=== PATIENT | male | born 1945 | race American Indian/Alaskan Native ===

== ENCOUNTER 2017-09-19 09:03 | Outpatient (CLI) | payer MEDICARE ==
--- NOTE | 2017-09-19 09:44 | XRay Report ---
CHEST XRAY, 2 VIEWS: History: Abnormal weight loss. Findings: There is mild diffuse interstitial coarsening. The lungs are hyperexpanded but clear. No infiltrate, pleural fluid or pneumothorax is detected. The cardiac silhouette and pulmonary vasculature are within normal limits for technique. The bony thorax is unremarkable. IMPRESSION: Changes consistent with COPD. No acute cardiopulmonary process.
== END 2017-09-19 09:04 | disposition home or self-care (01) ==
LOC: XRAY 09:03
PROVIDERS: ATTEND Family Medicine
DX: R63.4 Abnormal weight loss (principal)
CPT/HCPCS: 71046

== ENCOUNTER 2019-12-02 07:35 | Outpatient (CLI) | payer MEDICARE ==
[2019-12-02 08:23] LABS: Blood Urea Nitrogen 9 mg/dL (9-20)
--- NOTE | 2019-12-02 10:47 | Cat Scan Report ---
CT ABDOMEN AND PELVIS WITH CONTRAST (CT ENTEROGRAPHY) INDICATION / CLINICAL INFORMATION: Follow-up of thickening of the distal ileum on prior CT. TECHNIQUE: Axial CT images were obtained through the abdomen and pelvis after 100 cc Omnipaque 300 IV contrast a nd oral contrast. All CT scans at this location are performed using CT dose reduction for NAHOMY willard of automated exposure control. COMPARISON: Small bowel series from 09/30/2019. FINDINGS: LOWER CHEST: The lung bases are clear. Heart size is normal without a pericardial effusion. There is dense calcification throughout the coronary arteries with moderate thoracic aortic atherosclerosis. N o other significant abnormality. LIVER: No significant abnormality. GALLBLADDER: Contracted without a distinct abnormality. BILE DUCTS: No significant abnormality. PANCREAS: No significant abnormality. SPLEEN: No significant abnormality. ADRENALS: No significant abnormality. RIGHT KIDNEY / URETER: No significant abnormality. LEFT KIDNEY / URETER: No significant abnormality. STOMACH / SMALL BOWEL: Mild fatty infiltration is seen at the terminal ileum/ileocecal junction witho ut suspicious bowel thickening or dilatation. No other significant abnormality. COLON: No significant abnormality. APPENDIX: No significant abnormality. PERITONEUM: No free fluid. No free air. No fluid collection. LYMPH NODES: No significant adenopathy. AORTA / ARTERIES: There is severe generalized atherosclerosis without an additional significant abnor mality. IVC / VEINS: No significant abnormality. URINARY BLADDER: No significant abnormality. REPRODUCTIVE ORGANS: No significant abnormality. ADDITIONAL FINDINGS: None. SKELETAL SYSTEM: The bones are demineralized with moderate generalized degenerative changes along the spine and pelvis. No acute abnormality. IMPRESSION: 1. Nonspecific mild fatty infiltration at the terminal ileum/ileocecal junction without suspicious gisselle wel thickening or other significant abnormalities. Inflammatory bowel disease or sequela of another i nfectious/inflammatory process are considerations. No mass is clearly seen to suggest a neoplastic pr ocess. Endoscopy may be helpful for further evaluation if there is continuing clinical concern. 2. Additional findings as above. Signer Name: Yandel Savage MD Signed: 12/02/2019 10:42 AM Workstation Name: [email or web address]
== END 2019-12-02 07:36 | disposition home or self-care (01) ==
LOC: CT 07:35
PROVIDERS: ATTEND Internal Medicine Gastroenterology
DX: K59.89 Other specified functional intestinal disorders (principal); I25.10 Atherosclerotic heart disease of native coronary artery without angina pectoris; M47.9 Spondylosis, unspecified; M16.10 Unilateral primary osteoarthritis, unspecified hip
CPT/HCPCS: 36415; 74177; 82565; 84520; Q9967